=== PATIENT | female | born 2000 | race Caucasian/White ===

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

== ENCOUNTER → 2020-05-24 | Outpatient (CLI) | payer OTHER ==
[~2020-05-24] MED LIST: DIFLUCAN150 MG PO; MYCOSTATIN POWD15 GM TOP
== END ==
LOC: KOH-I 11:05
DX: M25.561 Pain in right knee (principal)
CPT/HCPCS: 73564

== ENCOUNTER → 2020-09-14 | Outpatient (CLI) | payer OTHER | LOC: RAD 16:00 | DX: M25.561 Pain in right knee (principal) | CPT/HCPCS: 73564 ==

== ENCOUNTER 2021-02-14 22:40 | Emergency (ER) | payer OTHER ==
[2021-02-15] MEDS ORDERED: PREDNISONE50 MG PO (01:25)
[2021-02-15] MEDS ORDERED: PEPCID20 MG PO (01:25)
[2021-02-15] MEDS ORDERED: BENADRYL 25MG C25 MG PO (01:25)
== END 2021-02-15 01:50 | disposition home or self-care (01) ==
LOC: ER1 22:40
DX: T78.1XXA Other adverse food reactions, not elsewhere classified, initial encounter (principal); Z91.013 Allergy to seafood
CPT/HCPCS: 93005; 96372; 99283; J2930

== ENCOUNTER 2021-02-19 21:27 | Emergency (ER) | payer OTHER ==
[~2021-02-19 21:27] MED LIST changes: +BENADRYL 25MG C25 MG PO; +PEPCID20 MG PO; +PREDNISONE50 MG PO
== END 2021-02-19 22:14 | disposition home or self-care (01) ==
LOC: ER1 21:27
DX: T47.0X1A Poisoning by histamine H2-receptor blockers, accidental (unintentional), initial encounter (principal)
CPT/HCPCS: 99283

== ENCOUNTER 2021-03-19 18:59 | Emergency (ER) | payer OTHER ==
[2021-03-19 22:32] LABS: BORDETELLA PARAPERTUSSIS Not Detected (Not Detectd); BORDETELLA PERTUSSIS Not Detected (Not Detectd); CHLAMYDIA PNEUMONIAE Not Detected (Not Detectd); CORONAVIRUS HKU1 Not Detected (Not Detectd); CORONAVIRUS NL63 Not Detected (Not Detectd); CORONAVIRUS OC43 Not Detected (Not Detectd); CORONOAVIRUS 229E Not Detected (Not Detectd); HUMAN METAPNEUMOVIRUS Not Detected (Not Detectd); INFLUENZA A Not Detected (Not Detectd); INFLUENZA B Not Detected (Not Detectd); MYCOPLASMA PNEUMONIAE Not Detected (Not Detectd); PARAINFLUENZA VIRUS 1 Not Detected (Not Detectd); PARAINFLUENZA VIRUS 2 Not Detected (Not Detectd); PARAINFLUENZA VIRUS 3 Not Detected (Not Detectd); PARAINFLUENZA VIRUS 4 Not Detected (Not Detectd); RESPIRATORY SYNCYTIAL VIRUS Not Detected (Not Detectd)
[2021-03-20 00:05] LABS: HUMAN RHINOVIRUS/ENTEROVIRUS DETECTED (Not Detectd); SARS-CoV-2 NOT DETECTED (Not Detectd)
== END 2021-03-20 00:15 | disposition home or self-care (01) ==
LOC: ER1 18:59
PROVIDERS: Family Medicine
DX: R05.9 Cough, unspecified (principal); R09.81 Nasal congestion; B97.89 Other viral agents as the cause of diseases classified elsewhere; F84.0 Autistic disorder; Z20.822 Contact with and (suspected) exposure to COVID-19
CPT/HCPCS: 71045; 87633; 99283

== ENCOUNTER 2021-07-10 11:01 | Emergency (ER) | payer OTHER ==
[2021-07-10] MEDS ORDERED: IBU600 MG PO (12:07)
== END 2021-07-10 12:27 | disposition home or self-care (01) ==
LOC: ER1 11:01
DX: S80.12XA Contusion of left lower leg, initial encounter (principal); S80.11XA Contusion of right lower leg, initial encounter; Z20.822 Contact with and (suspected) exposure to COVID-19; Z91.013 Allergy to seafood; J06.9 Acute upper respiratory infection, unspecified; W19.XXXA Unspecified fall, initial encounter
CPT/HCPCS: 99283; U0003

== ENCOUNTER → 2022-01-27 | Outpatient (CLI) | payer OTHER ==
[~2022-01-27] MED LIST changes: +IBU600 MG PO
== END ==
LOC: KOH-I 16:44
DX: M25.572 Pain in left ankle and joints of left foot (principal)
CPT/HCPCS: 73610; 73630